=== PATIENT | male | born 1965 | race Two or more races ===

== ENCOUNTER → 2020-03-14 | Outpatient (CLI) | payer MEDICARE, OTHER ==
--- NOTE | 2020-03-14 16:43 | Diagnostic Imaging Report ---
Indication: Cough Technique: 2 views of the chest Comparison: None Findings: Lungs and pleural spaces are clear. The heart size is normal. There is a mild wedge deformity of the T12 vertebral body. Impression: No acute process Slight wedge deformity of the T12 vertebral body. This may be physiologic or could represent a compression fracture deformity, age-indeterminate if the latter
== END | disposition home or self-care (01) ==
LOC: RAD 10:46 → EDBD 10:46
DX: Z01.818 Encounter for other preprocedural examination (principal); Z01.812 Encounter for preprocedural laboratory examination; R05 Cough
CPT/HCPCS: 71046